=== PATIENT | male | born 1975 | race Caucasian/White ===

== ENCOUNTER 2019-05-21 09:26 | Emergency (ER) | payer OTHER ==
[~2019-05-21] VITALS: Ht 177.8 cm; Wt 104.3 kg
[2019-05-21 10:20] LABS: Basophils # (auto) 0.1 uL; Basophils % (auto) 0.6 % (0.0-2.0); Eosinophils # (auto) 0.1 uL; Eosinophils % (auto) 1.7 % (0.0-7.0); Hematocrit 44.1 % (41.0-53.0); Hemoglobin 14.6 g/dL (13.5-17.5); Lymphocytes # (auto) 2.2 uL; Mean Corpuscular Hemoglobin 28.4 pg (28.0-32.0); Mean Corpuscular Hgb Conc. 33.2 g/dL (32.0-36.0); Mean Corpuscular Volume 85.5 fL (80.0-100.0); Monocytes # (auto) 0.7 uL; Monocytes % (auto) 8.3 % (0.0-12.0); Neutrophils % (auto) 62.4 % (37.0-80.0); Nucleated Red Blood Cells % 0.1 %; Platelet Count (auto) 240 10^3/uL (140-450); Red Blood Cells 5.16 10^6/uL (4.5-5.90); Red Cell Distribution Width 14.2 % (11.8-14.3); White Blood Cell 8.1 10^3/uL (4.4-10.8)
[2019-05-21] MEDS ORDERED: SODIUM CHLORIDE 0.9% 1,000 ML IV ONE (10:21)
[2019-05-21] MEDS ORDERED: LORazepam 2MG/ML-1ML VIAL IV ONE (10:30)
[2019-05-21 10:36] LABS: Potassium 3.9 mmol/L (3.5-5.1)
[2019-05-21 10:45] LABS: Urine WBC None Seen /hpf (0 - 3)
[2019-05-21 10:48] LABS: Albumin 3.6 g/dL (3.4-5.0); BUN/Creatinine Ratio 12.7; Bilirubin, Total 0.2 mg/dL (0.2-1.0); Calcium 9.3 mg/dL (8.5-10.1); Total Protein 6.8 g/dL (6.4-8.2)
[2019-05-21] MEDS ORDERED: LEVETIRACETAM INJ 1,000 MG in D5W 5% 100 ML IV ONE (11:00)
[2019-05-21 11:37] LABS: Alcohol, Urine < 3.0 mg/dL (0-5); Amphetamine Screen, Urine NEGATIVE (NEGATIVE); Barbiturate Scree,Urine NEGATIVE (NEGATIVE); Benzodiazephine Screen, Urine NEGATIVE (NEGATIVE); Cannabinoid Screen, Urine NEGATIVE (NEGATIVE); Cocaine Screen, Urine NEGATIVE (NEGATIVE); Phencyclidine Screen, Urine NEGATIVE (NEGATIVE)
[2019-05-21 11:43] LABS: Urine Bacteria NONE SEEN /hpf (None Seen); Urine Blood Negative /uL (Negative); Urine Mucus FEW (None Seen); Urine Specific Gravity 1.027 (1.001-1.035)
[2019-05-21 11:46] LABS: Opiate Scree,Urine POSITIVE (NEGATIVE)
[2019-05-21 13:33] VITALS: BP 133/77
== END 2019-05-21 13:49 | disposition home or self-care (01) ==
LOC: ER 09:26 → EDBD 09:26 → ER 13:49
DX: G40.901 Epilepsy, unspecified, not intractable, with status epilepticus (principal); E78.5 Hyperlipidemia, unspecified; I10 Essential (primary) hypertension
CPT/HCPCS: 36415; 70450; 71046; 80053; 80307; 81001; 82542; 82962; 83735; 85025; 94761; 96361; 96365; 96375; 99284; J1953; J2060; J7030; J7060

== ENCOUNTER 2019-06-10 10:23 | Emergency (ER) | payer MEDICAID, OTHER ==
[~2019-06-10] VITALS: Ht 170.2 cm; Wt 90.7 kg
[2019-06-10] MEDS ORDERED: LEVETIRACETAM INJ 500 MG in D5W 5% 100 ML IV ONE (11:15)
[2019-06-10] MEDS ORDERED: MORPHINE SULFATE 4 MG/ML SYR/VIAL IV ONE (11:15)
[2019-06-10] MEDS ORDERED: ONDANSETRON HCL 4 MG/2 ML VIAL IV ONE (11:15)
[2019-06-10 11:54] VITALS: BP 111/72
== END 2019-06-10 14:52 | disposition home or self-care (01) ==
LOC: EDBD 10:23 → ER 10:27
DX: G40.909 Epilepsy, unspecified, not intractable, without status epilepticus (principal); E78.5 Hyperlipidemia, unspecified; I10 Essential (primary) hypertension; F32.9 Major depressive disorder, single episode, unspecified
CPT/HCPCS: 70450; 71101; 93005; 96365; 96375; 99284; J1953; J2270; J2405; J7060

== ENCOUNTER 2019-06-11 11:11 | Inpatient (IN) | payer MEDICAID ==
[~2019-06-11] VITALS: Ht 170.2 cm; Wt 90.2 kg
[2019-06-11 12:04] LABS: Basophils # (auto) 0.1 uL; Basophils % (auto) 1.3 % (0.0-2.0); Eosinophils # (auto) 0.1 uL; Eosinophils % (auto) 1.7 % (0.0-7.0); Hematocrit 44.8 % (41.0-53.0); Lymphocytes # (auto) 2.7 uL; Lymphocytes % (auto) 37.1 % (10.0-50.0); Mean Corpuscular Hemoglobin 28.1 pg (28.0-32.0); Mean Corpuscular Hgb Conc. 33.5 g/dL (32.0-36.0); Mean Corpuscular Volume 83.8 fL (80.0-100.0); Monocytes # (auto) 0.6 uL; Monocytes % (auto) 8.3 % (0.0-12.0); Neutrophils # (auto) 3.8 uL; Neutrophils % (auto) 51.6 % (37.0-80.0); Platelet Count (auto) 272 10^3/uL (140-450); Red Blood Cells 5.34 10^6/uL (4.5-5.90); Red Cell Distribution Width 14.1 % (11.8-14.3); White Blood Cell 7.3 10^3/uL (4.4-10.8)
[2019-06-11 12:16] LABS: Alanine Aminotransferase 32 U/L (16-61); Albumin 3.7 g/dL (3.4-5.0); Anion Gap 4 (5-15); Blood Urea Nitrogen 13 mg/dL (7-18); Carbon Dioxide 29 mmol/L (21-32); Chloride 110 mmol/L (98-107); Glucose 100 mg/dL (74-106); Potassium 3.9 mmol/L (3.5-5.1); Sodium 143 mmol/L (136-145)
[2019-06-11 12:21] LABS: Alkaline Phosphatase 123 U/L (45-117); Aspartate Aminotransferase 15 U/L (15-37); BUN/Creatinine Ratio 14.4; Bilirubin, Total 0.4 mg/dL (0.2-1.0); GFR African American 119 mL/min; GFR Non-African American 98 mL/min; Total Protein 7.3 g/dL (6.4-8.2)
[2019-06-11] MEDS ORDERED: ACETAMINOPHEN 650 mg PER 20 mL UD PO ONE (13:30)
[2019-06-11] MEDS ORDERED: LEVETIRACETAM INJ 1,000 MG in D5W 5% 100 ML IV ONE (15:00)
[2019-06-11] MEDS ORDERED: SODIUM CHLORIDE 0.9% 1,000 ML IVB ONE (15:36)
[2019-06-11] MEDS ORDERED: NITROGLYCERIN 0.4 MG SL TAB SL PRN (18:30)
[2019-06-11] MEDS ORDERED: LORazepam 2MG/ML-1ML VIAL IV PRN (18:30)
[2019-06-11] MEDS ORDERED: ONDANSETRON HCL 4 MG/2 ML VIAL IV PRN (18:30)
[2019-06-11] MEDS ORDERED: MORPHINE SULF INJ 2 MG/ML SYRINGE 1ML IV PRN ×2 (18:30)
[2019-06-11] MEDS ORDERED: DOCUSATE SOD 100 MG CAP PO PRN (18:30)
[2019-06-11] MEDS ORDERED: ACETAMINOPHEN 500 MG TAB PO PRN (18:30)
[2019-06-11 19:30] LABS: Urine Bacteria NONE SEEN /hpf (None Seen); Urine Blood Negative /uL (Negative); Urine Mucus MODERATE (None Seen); Urine Specific Gravity 1.037 (1.001-1.035); Urine WBC 3 /hpf (0 - 3)
[2019-06-11 19:41] LABS: Alcohol, Urine < 3.0 mg/dL (0-5); Amphetamine Screen, Urine NEGATIVE (NEGATIVE); Benzodiazephine Screen, Urine NEGATIVE (NEGATIVE); Cannabinoid Screen, Urine NEGATIVE (NEGATIVE); Opiate Scree,Urine NEGATIVE (NEGATIVE); Phencyclidine Screen, Urine NEGATIVE (NEGATIVE)
[2019-06-11 19:51] LABS: Barbiturate Scree,Urine NEGATIVE (NEGATIVE); Cocaine Screen, Urine NEGATIVE (NEGATIVE)
[2019-06-11 22:15] VITALS: BP 112/57
[2019-06-11 22:16] VITALS: BP 99/50
[2019-06-11] MEDS: VENLAFAXINE HCL 37.5MG TABLET PO SCH (22:45)
[2019-06-11] MEDS: LEVETIRACETAM 500 MG TAB PO SCH (22:46)
[2019-06-12] VITALS (7 sets, daily range): BP systolic 98–112; BP diastolic 57–73
[2019-06-12] MEDS ORDERED: ARIP1TAB7 PO (01:10)
[2019-06-12] MEDS ORDERED: AMLO5TAB15 PO (01:10)
[2019-06-12] MEDS ORDERED: LORA-655 PO (01:10)
[2019-06-12] MEDS ORDERED: LEVE500T22 PO (01:10)
[2019-06-12] MEDS ORDERED: VENL75CA3 PO (01:10)
[2019-06-12] MEDS: FAMOTIDINE 20 MG TAB PO SCH (09:37)
[2019-06-12] MEDS: LEVETIRACETAM 500 MG TAB PO SCH ×2 (09:38→21:38)
[2019-06-12] MEDS: VENLAFAXINE HCL 37.5MG TABLET PO SCH ×2 (09:38→21:38)
[2019-06-13 05:00] VITALS: BP 105/65
[2019-06-13 09:00] VITALS: BP 116/69
[2019-06-13] MEDS: FAMOTIDINE 20 MG TAB PO SCH (10:07)
[2019-06-13] MEDS: LEVETIRACETAM 500 MG TAB PO SCH ×2 (10:07→21:18)
[2019-06-13] MEDS: VENLAFAXINE HCL 37.5MG TABLET PO SCH ×2 (10:07→21:18)
[2019-06-13] MEDS: LORazepam 0.5 MG TAB PO PRN ×2 (10:07→17:29)
[2019-06-13 13:00] VITALS: BP 117/72
[2019-06-13 17:00] VITALS: BP 111/60
[2019-06-13 21:42] VITALS: BP 102/59
[2019-06-14 04:47] VITALS: BP 108/67
[2019-06-14 09:00] VITALS: BP 110/70
[2019-06-14] MEDS: HYDROcodone-ACET 5/325MG TAB PO PRN (10:28)
[2019-06-14] MEDS: LEVETIRACETAM 500 MG TAB PO SCH ×2 (10:28→20:50)
[2019-06-14] MEDS: VENLAFAXINE HCL 37.5MG TABLET PO SCH ×2 (10:29→20:49)
[2019-06-14] MEDS: FAMOTIDINE 20 MG TAB PO SCH (10:29)
[2019-06-14] MEDS: LORazepam 0.5 MG TAB PO PRN ×2 (10:36→20:50)
[2019-06-14 13:00] VITALS: BP_SYST 116; BP_SYST 123; BP_DIAS 64; BP_DIAS 75
[2019-06-14 16:56] VITALS: BP 112/69
[2019-06-14 21:34] VITALS: BP 112/69
[2019-06-14 22:00] VITALS: BP 114/73
[2019-06-15 05:58] VITALS: BP 102/57
[2019-06-15 09:00] VITALS: BP 108/68
[2019-06-15] MEDS: LEVETIRACETAM 500 MG TAB PO SCH (10:20)
[2019-06-15] MEDS: VENLAFAXINE HCL 37.5MG TABLET PO SCH (10:20)
[2019-06-15] MEDS: LORazepam 0.5 MG TAB PO PRN (10:21)
[2019-06-15] MEDS: FAMOTIDINE 20 MG TAB PO SCH (10:21)
[2019-06-15 13:00] VITALS: BP 100/62
[2019-06-15] MEDS ORDERED: VENL37.56 PO (13:08)
[2019-06-15] MEDS ORDERED: KEP500T PO (13:10)
[2019-06-15] MEDS: HYDROcodone-ACET 5/325MG TAB PO PRN (14:12)
[2019-06-15 14:36] VITALS: BP 112/69
== END 2019-06-15 16:00 | disposition home or self-care (01) | DRG 53 ==
LOC: EDBD 11:11 → ER 11:17 → OVERFLOW 11:18 → CENTRAL 22:30
PROVIDERS: ADMIT Nurse Practitioner Acute Care; ATTEND Internal Medicine Pulmonary Disease
DX: G40.409 Other generalized epilepsy and epileptic syndromes, not intractable, without status epilepticus (principal); E66.9 Obesity, unspecified; I10 Essential (primary) hypertension; F41.0 Panic disorder [episodic paroxysmal anxiety]; G47.10 Hypersomnia, unspecified; Z79.899 Other long term (current) drug therapy; Z68.31 Body mass index [BMI] 31.0-31.9, adult
CPT/HCPCS: 36415; 70450; 80053; 80307; 81001; 82542; 84484; 85025; 94761; 96361; 96365; G0378; J7060

== ENCOUNTER 2021-06-06 14:41 | Emergency (ER) | payer MEDICAID, OTHER ==
[~2021-06-06] VITALS: Ht 170.2 cm; Wt 99.8 kg
[~2021-06-06 14:41] MED LIST: AMLO-489 PO; ARIP1TAB7 PO; KEP500T PO; LORA-655 PO; VENL1TAB97 PO
[2021-06-06 15:46] LABS: Salicylate 3.1 mg/dL (2.8-20.0)
[2021-06-06 15:57] LABS: Acetaminophen < 2.0 ug/mL (10-30)
[2021-06-07 14:06] LABS: Alcohol, Urine < 3.0 mg/dL (0-10); Amphetamine Screen, Urine NEGATIVE (NEGATIVE); Barbiturate Scree,Urine NEGATIVE (NEGATIVE); Benzodiazephine Screen, Urine NEGATIVE (NEGATIVE); Cannabinoid Screen, Urine NEGATIVE (NEGATIVE); Cocaine Screen, Urine NEGATIVE (NEGATIVE); Opiate Scree,Urine NEGATIVE (NEGATIVE); Phencyclidine Screen, Urine NEGATIVE (NEGATIVE)
[2021-06-08] MEDS ORDERED: amLODIPine BESYLATE 5 MG TAB PO ONE (08:15)
[2021-06-08] MEDS ORDERED: LORazepam 0.5 MG TAB PO ONE (10:00)
[2021-06-08] MEDS ORDERED: levETIRAcetam 500 MG TAB PO ONE (10:00)
[2021-06-09] MEDS: LORazepam 0.5 MG TAB PO PRN (12:41)
[2021-06-09] MEDS ORDERED: levETIRAcetam 500 MG TAB PO ONE (22:18)
[2021-06-09] MEDS ORDERED: diphenhdrAMINE HCL 25 MG CAP PO ONE (22:18)
[2021-06-09] MEDS: diphenhdrAMINE HCL 25 MG CAP PO SCH (22:20)
[2021-06-09] MEDS: levETIRAcetam 500 MG TAB PO SCH (22:21)
[2021-06-10] MEDS: levETIRAcetam 500 MG TAB PO SCH ×2 (10:00→23:17)
[2021-06-10] MEDS: LORazepam 0.5 MG TAB PO PRN ×2 (12:57→23:17)
[2021-06-10] MEDS ORDERED: levETIRAcetam 500 MG TAB PO ONE (23:13)
[2021-06-10] MEDS ORDERED: LORazepam 0.5 MG TAB ONE (23:13)
[2021-06-10] MEDS ORDERED: diphenhdrAMINE HCL 25 MG CAP PO ONE (23:13)
[2021-06-10] MEDS: diphenhdrAMINE HCL 25 MG CAP PO SCH (23:17)
[2021-06-11] MEDS ORDERED: levETIRAcetam 500 MG TAB PO ONE ×2 (10:18→21:42)
[2021-06-11 10:19] LABS: Basophils # (auto) 0 10 ^3/uL (0-0.2); Basophils % (auto) 0.5 % (0.0-2.0); Eosinophils # (auto) 0.1 10 ^3/uL (0-0.8); Eosinophils % (auto) 1.4 % (0.0-7.0); Hematocrit 45.3 % (41.0-53.0); Hemoglobin 15.8 g/dL (13.5-17.5); Lymphocytes # (auto) 2.9 10 ^3/uL (0.4-5.4); Lymphocytes % (auto) 34.8 % (10.0-50.0); Mean Corpuscular Hemoglobin 29.5 pg (28.0-32.0); Mean Corpuscular Hgb Conc. 34.9 g/dL (32.0-36.0); Mean Corpuscular Volume 84.4 fL (80.0-100.0); Monocytes # (auto) 0.7 10 ^3/uL (0-1.3); Monocytes % (auto) 7.8 % (0.0-12.0); Neutrophils # (auto) 4.7 10 ^3/uL (1.6-8.6); Neutrophils % (auto) 55.5 % (37.0-80.0); Nucleated Red Blood Cells % 0.2 %; Red Blood Cells 5.36 10^6/uL (4.5-5.90); Red Cell Distribution Width 13.7 % (11.8-14.3); White Blood Cell 8.5 10^3/uL (4.4-10.8)
[2021-06-11] MEDS: levETIRAcetam 500 MG TAB PO SCH ×2 (10:22→21:43)
[2021-06-11 10:37] LABS: Potassium 4.3 mmol/L (3.5-5.1)
[2021-06-11 10:47] LABS: Albumin 3.3 g/dL (3.4-5.0); BUN/Creatinine Ratio 16.1; Bilirubin, Total 0.4 mg/dL (0.2-1.0); Calcium 8.9 mg/dL (8.5-10.1); Total Protein 7.4 g/dL (6.4-8.2)
[2021-06-11 12:14] LABS: Urine Bacteria NONE SEEN /hpf (None Seen); Urine Blood Negative /uL (Negative); Urine Mucus FEW (None Seen); Urine Specific Gravity 1.023 (1.001-1.035); Urine WBC 1 /hpf (0 - 3)
[2021-06-11] MEDS: LORazepam 0.5 MG TAB PO PRN (19:48)
[2021-06-11] MEDS ORDERED: diphenhdrAMINE HCL 25 MG CAP PO ONE ×2 (21:42→21:47)
[2021-06-11] MEDS: diphenhdrAMINE HCL 25 MG CAP PO SCH (21:43)
[2021-06-12] MEDS: levETIRAcetam 500 MG TAB PO SCH (10:00)
[2021-06-12] MEDS ORDERED: levETIRAcetam 500 MG TAB PO ONE (12:58)
[2021-06-12] MEDS ORDERED: LORazepam 0.5 MG TAB ONE (17:56)
[2021-06-12] MEDS ORDERED: LORazepam 0.5 MG TAB PO ONE (18:00)
[2021-06-13] MEDS ORDERED: LORazepam 0.5 MG TAB PO ONE ×2 (11:30→15:00)
[2021-06-13] MEDS: MIRTAZAPINE 30 MG TAB PO SCH (22:00)
[2021-06-14] MEDS ORDERED: LORazepam 0.5 MG TAB PO ONE (12:15)
[2021-06-14] MEDS ORDERED: levETIRAcetam 500 MG TAB PO ONE (20:59)
[2021-06-14] MEDS: MIRTAZAPINE 30 MG TAB PO SCH (21:00)
[2021-06-15] MEDS ORDERED: LORazepam 0.5 MG TAB PO ONE (17:30)
[2021-06-15] MEDS: OLANZapine 5 MG TAB PO SCH (22:58)
[2021-06-16] MEDS: SERTRALINE HCL 50 MG TAB PO SCH (08:00)
[2021-06-17] MEDS: OLANZapine 5 MG TAB PO SCH ×2 (02:09→22:26)
[2021-06-17] MEDS: SERTRALINE HCL 50 MG TAB PO SCH (08:00)
[2021-06-17] MEDS ORDERED: LORazepam 0.5 MG TAB PO ONE (19:00)
[2021-06-17] MEDS ORDERED: LORazepam 0.5 MG TAB PO PRN (19:30)
[2021-06-18] MEDS ORDERED: SERTRALINE HCL 50 MG TAB ONE (09:08)
[2021-06-18 09:16] VITALS: BP 116/70
[2021-06-18] MEDS: SERTRALINE HCL 50 MG TAB PO SCH (09:16)
[2021-06-18] MEDS ORDERED: LORazepam 0.5 MG TAB ONE (17:15)
== END 2021-06-18 18:26 | disposition home or self-care (01) ==
LOC: EDBD 14:41 → ER 14:44
DX: R45.851 Suicidal ideations (principal); R44.0 Auditory hallucinations; F17.210 Nicotine dependence, cigarettes, uncomplicated; Z20.822 Contact with and (suspected) exposure to COVID-19
CPT/HCPCS: 36415; 80053; 80307; 80329; 81001; 85025; 87426

== ENCOUNTER 2023-05-08 11:20 | Emergency (ER) | payer MEDICARE, OTHER ==
[~2023-05-08] VITALS: Ht 175.3 cm; Wt 100.0 kg
[~2023-05-08 11:20] MED LIST changes: -AMLO-489 PO; +AMLO1TAB22 PO
[2023-05-08] MEDS ORDERED: LORazepam 2MG/ML-1ML VIAL IV ONE (11:30)
[2023-05-08 11:43] LABS: Basophils # (auto) 0.1 10 ^3/uL (0-0.2); Basophils % (auto) 0.7 % (0.0-2.0); Eosinophils # (auto) 0.1 10 ^3/uL (0-0.8); Eosinophils % (auto) 0.8 % (0.0-7.0); Hematocrit 44.5 % (41.0-53.0); Hemoglobin 15.1 g/dL (13.5-17.5); Lymphocytes # (auto) 2.2 10 ^3/uL (0.4-5.4); Lymphocytes % (auto) 28.3 % (10.0-50.0); Mean Corpuscular Hemoglobin 28.8 pg (28.0-32.0); Mean Corpuscular Volume 84.5 fL (80.0-100.0); Monocytes # (auto) 0.6 10 ^3/uL (0-1.3); Monocytes % (auto) 7.5 % (0.0-12.0); Neutrophils # (auto) 4.8 10 ^3/uL (1.6-8.6); Neutrophils % (auto) 62.7 % (37.0-80.0); Nucleated Red Blood Cells % 0.1 %; Red Blood Cells 5.27 10^6/uL (4.5-5.90); Red Cell Distribution Width 13.3 % (11.8-14.3); White Blood Cell 7.6 10^3/uL (4.4-10.8)
[2023-05-08 11:57] LABS: Anion Gap 7 (5-15); BUN/Creatinine Ratio 5.1 (10.0-20.0); Blood Alcohol < 3.0 mg/dL (<10); Blood Urea Nitrogen 6 mg/dL (7-18); Calcium 9.2 mg/dL (8.5-10.1); Carbon Dioxide 23 mmol/L (21-32); Chloride 109 mmol/L (98-107); GFR African American 85 mL/min; GFR Non-African American 71 mL/min; Glucose 145 mg/dL (74-106); Potassium 3.5 mmol/L (3.5-5.1); Sodium 139 mmol/L (136-145)
[2023-05-08] MEDS ORDERED: SODIUM CHLORIDE 0.9% 500 ML IV ONE (12:15)
[2023-05-08 12:53] LABS: Alcohol, Urine < 3.0 mg/dL (0-10); Amphetamine Screen, Urine NEGATIVE (NEGATIVE); Barbiturate Scree,Urine NEGATIVE (NEGATIVE); Benzodiazephine Screen, Urine NEGATIVE (NEGATIVE); Cannabinoid Screen, Urine NEGATIVE (NEGATIVE); Cocaine Screen, Urine NEGATIVE (NEGATIVE); Opiate Scree,Urine NEGATIVE (NEGATIVE); Phencyclidine Screen, Urine NEGATIVE (NEGATIVE)
[2023-05-08] MEDS ORDERED: OLANZapine 5 MG TAB PO PRN (13:15)
[2023-05-09 08:20] VITALS: BP 106/60
== END 2023-05-09 08:37 | disposition short-term general hospital (02) ==
LOC: EDBD 11:20 → ER 11:20
DX: R45.851 Suicidal ideations (principal); F31.9 Bipolar disorder, unspecified; F17.210 Nicotine dependence, cigarettes, uncomplicated; F41.9 Anxiety disorder, unspecified; E78.5 Hyperlipidemia, unspecified
CPT/HCPCS: 36415; 80048; 80307; 80320; 85025; 96374; 99285; J2060; J7040

== ENCOUNTER 2023-05-17 10:34 | Emergency (ER) | payer MEDICARE, OTHER ==
[~2023-05-17] VITALS: Ht 172.7 cm; Wt 100.0 kg
[2023-05-17] MEDS ORDERED: LORazepam 0.5 MG TAB PO ONE ×2 (12:00→15:45)
[2023-05-18] MEDS ORDERED: LORazepam 0.5 MG TAB PO ONE ×3 (06:15→17:00)
[2023-05-18 10:11] LABS: Alcohol, Urine < 3.0 mg/dL (0-10); Amphetamine Screen, Urine NEGATIVE (NEGATIVE); Barbiturate Scree,Urine NEGATIVE (NEGATIVE); Benzodiazephine Screen, Urine NEGATIVE (NEGATIVE); Cannabinoid Screen, Urine NEGATIVE (NEGATIVE); Cocaine Screen, Urine NEGATIVE (NEGATIVE); Opiate Scree,Urine NEGATIVE (NEGATIVE); Phencyclidine Screen, Urine NEGATIVE (NEGATIVE)
[2023-05-18] MEDS: OLANZapine 5 MG TAB PO SCH (22:11)
[2023-05-19] MEDS: OLANZapine 5 MG TAB PO SCH (06:48)
[2023-05-19] MEDS ORDERED: LORazepam 0.5 MG TAB PO ONE (08:15)
[2023-05-19 13:09] VITALS: BP 121/88
== END 2023-05-19 13:27 | disposition short-term general hospital (02) ==
LOC: ER 10:34 → EDBD 10:34 → EDUNIT# 10:34 → ER 05-19 13:27
DX: R45.851 Suicidal ideations (principal); E78.5 Hyperlipidemia, unspecified; F20.9 Schizophrenia, unspecified; F17.210 Nicotine dependence, cigarettes, uncomplicated; Z90.49 Acquired absence of other specified parts of digestive tract; Z98.890 Other specified postprocedural states
CPT/HCPCS: 80307